=== PATIENT | female | born 1975 ===

== ENCOUNTER → 2023-03-04 07:52 | Outpatient (CLI) | payer OTHER, SELFPAY ==
--- NOTE | ~2023-03-04 | MR_ITS ---
EXAMINATION: MR abdomen wo/w con DATE: 03/04/2023 09:01 INDICATION: Left adrenal mass TECHNIQUE: Magnetic resonance imaging (MRI) of the abdomen was performed without and with 13 mL Multi kizzy intravenous contrast. Sequences included coronal T2-weighted SS-FSE, coronal and axial FS 2D-F IESTA, axial STIR FSE, axial T2-weighted SS-FSE, axial T2-weighted FS SS-FSE, axial diffusion-weighte d SE, axial dual-echo T1-weighted FSPGR, and axial and coronal T1-weighted LAVA. Postcontrast axial T 1-weighted LAVA images were obtained in a time course. Postcontrast coronal T1-weighted LAVA images w ere obtained. COMPARISON: None. FINDINGS: Bilateral breast implants. Heart size is normal. No pericardial or pleural effusion. Magnetic suscept ibility artifact at the gallbladder fossa consistent with cholecystectomy clips with no evident gallb ladder. There is dilation of the common hepatic duct to 1.3 cm which gradually tapers throughout the common bile duct to the ampulla with no evident intraluminal filling defects to suggest choledocholit hiasis. Liver is normal with no intrahepatic biliary ductal dilation. Spleen, pancreas and left kidne y are normal. There are couple subcentimeter T2 hyperintense nonenhancing right renal cyst. Right adr enal gland is normal. Prominent signal dropout on opposed phase images at a 12 x 9 mm left adrenal ma ss which is consistent with an adenoma. Visualized portion of the bowels are unremarkable. No patholo gically enlarged abdominal lymphadenopathy. Mild lumbar levocurvature with mild spondylosis. IMPRESSION: 1. 12 x 9 mm left adrenal adenoma with characteristic signal dropout on opposed phase imaging. 2. Mild extrahepatic biliary ductal dilation without evident obstructing choledocholithiasis which is within normal limits post cholecystectomy. Reviewed, dictated and finalized at location B. IMPRESSION: 1. 12 x 9 mm left adrenal adenoma with characteristic signal dropout on opposed phase imaging. 2. Mild extrahepatic biliary ductal dilation without evident obstructing choled ocholithiasis which is within normal limits post cholecystectomy.
== END ==
PROVIDERS: PCP Nurse Practitioner Family; Visit Provider Nurse Practitioner Family
DX: E27.8 Other specified disorders of adrenal gland (principal); D35.02 Benign neoplasm of left adrenal gland
CPT/HCPCS: 74183; A9577